=== PATIENT | male | born 1975 | race African-American/Black ===

== ENCOUNTER 2020-01-03 16:57 | Emergency (ER) | payer OTHER ==
[~2020-01-03] VITALS: Ht 177.8 cm; Wt 106.6 kg
[~2020-01-03 16:57] MED LIST: ADVAIR 250-501 EACH IH; ALBUTEROL INHAL17 GM IH; ALBUTEROL2.5 MG/31 INH; ALBUTEROL2.5 MG/32 IH; FLEXERIL PO; LORTABELXR PO; NAPROSYN500 MG PO; NORCO 5-325 TA1 EACH PO; PREDNISONE 20 M20 M1 PO; PREDNISONE50 MG PO; TESSALON200 MG PO; ULTRAM 50MG TAB50 MG PO; ZPAK PO
[2020-01-03 17:44] LABS: HEMATOCRIT 40.7 % (42.0-52.0); MCH 30.9 pg (26.0-34.0); MCHC 33.8 g/dL (28.0-37.0)
[2020-01-03 17:46] LABS: ABSOLUTE NEUTROPHILS 6.3 thou/uL (1.4-8.2); BASOPHILS 0.8 % (0.0-2.0); HEMOGLOBIN 13.7 gm/dL (14.0-18.0); LYMPHOCYTES 14.4 % (24.0-44.0); MCV 91.5 fL (80.0-100.0); MONOCYTES 4.6 % (1.0-8.0); PLATELET COUNT 302 thou/uL (150-400); POLYS 80.2 % (36.0-66.0); RBC 4.45 mil/uL (4.50-6.00); RDW 13.9 % (10.5-14.5); WBC 7.8 thou/uL (4.0-11.0)
[2020-01-03 17:52] LABS: ANION GAP 9 mmol/L (7-16); BUN 13 mg/dL (7-18); CALCIUM 8.6 mg/dL (8.5-10.1); CHLORIDE 102 mmol/L (98-107); CO2 26 mmol/L (21-32); CREATININE 1.2 mg/dL (0.7-1.3); GLUCOSE 155 mg/dL (74-106); SODIUM 137 mmol/L (136-145)
[2020-01-03 18:01] LABS: ALBUMIN 3.8 g/dL (3.4-5.0); SGOT 21 U/L (15-37); SGPT 32 U/L (30-65); TOTAL BILIRUBIN 0.8 mg/dL (<0.1-1.0); TOTAL PROTEIN 7.3 g/dL (6.4-8.2); TROPONIN-I <0.06 ng/mL (<0.06)
[2020-01-03] MEDS ORDERED: PREDNISONE 20 M20 MG PO (18:28)
[2020-01-03] MEDS ORDERED: ZYRTEC10 M2 PO (18:28)
[2020-01-03] MEDS ORDERED: BUDESONIDE1 MG/2 ML NEB (18:28)
[2020-01-03 18:41] VITALS: BP 122/76
--- NOTE | 2020-01-04 08:59 | EKG ---
[facility] [place] [address] ELECTROCARDIOGRAM REPORT Name: KAILEY LEYVA 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: [facility] : 1975 Requested By: Ashley Mancilla Order Number: [id number] MD: Boaz Disla Measurements Intervals [place] Rate: 99 P: 51 [place]: 175 QRS: -9 QRSD: 85 T: 37 QT: 345 QTc: 443 Interpretive Statements Sinus rhythm Probable left atrial enlargement Left ventricular hypertrophy Compared to ECG 09/21/2010 10:17:45 Left ventricular hypertrophy now present T-wave abnormality no longer present Electronically Signed On 01-04-2020 8:57:57 CDT by Boaz Disla [email or web address] <ELECTRONICALLY SIGNED> By: Boaz Disla MD 01/04/20 [id number] Boaz Disla MD /EPI
== END 2020-01-03 18:43 | disposition home or self-care (01) ==
LOC: ER 16:57
PROVIDERS: Physician Assistant
DX: J45.909 Unspecified asthma, uncomplicated (principal); R06.02 Shortness of breath; F17.210 Nicotine dependence, cigarettes, uncomplicated